=== PATIENT | female | born 1995 | race American Indian/Alaskan Native ===

== ENCOUNTER 2017-07-08 13:31 | Emergency (ER) | payer SELFPAY ==
[2017-07-08 14:00] VITALS: BP 115/68
--- NOTE | 2017-07-08 17:06 | Emergency Department Report ---
Blank Doc - Documentation Documentation: Patient is a 22-year-old [place] female who is presenting with low-grade fever and left no swelling in her neck and left inguinal area. Patient states is been present approximately one week she has had some mild nausea as well. Patient denies any sore throat cough congestion dysuria at this time. Because of patient has a left lateral swelling and there are some shotty anterior cervical lymph nodes and posterior cervical lymph nodes present I'm going to order some basic labs as measured her WBC count is not elevated urinalysis and rapid strep also be ordered as well
[2017-07-08 17:30] LABS: HCG Qualitative,Urine Negative (Negative)
[2017-07-08 17:35] LABS: Bilirubin,Urine SM (Negative); Blood,Urine NEG (Negative); Color,Urine Amber (Yellow); Mucus,Urine 3+ /HPF; Nitrite,Urine NEG (Negative); Renal Epithelial Cells,Urine 2 /LPF
[2017-07-08 17:37] LABS: Hematocrit 38.6 % (30.3-42.9); Hemoglobin 12.9 gm/dl (10.1-14.3); Mean Corpuscular HGB Conc 33 % (30-34); Mean Corpuscular Hemoglobin 30 pg (28-32); Mean Corpuscular Volume 90 fl (79-97); Platelet Count 338 K/mm3 (140-440); Red Blood Count 4.32 M/mm3 (3.65-5.03); Red Cell Distribution Width 12.7 % (13.2-15.2)
[2017-07-08 17:45] LABS: Ictotest,Urine Negative (Negative)
[2017-07-08 17:50] LABS: BUN/Creatinine Ratio 7; Blood Urea Nitrogen 5 mg/dL (7-17); Calcium 8.8 mg/dL (8.4-10.2); Hemolysis Index 4
[2017-07-08] MEDS ORDERED: ZITHROMAX PO ONE (18:45)
[2017-07-08] MEDS ORDERED: ROCEPHIN IM ONE (18:45)
[2017-07-08] MEDS ORDERED: MOTRIN PO ONE (18:45)
[2017-07-08] MEDS ORDERED: XYLOCAINE 1% MPF 5 mL INFILTRATI ONE (18:45)
--- NOTE | 2017-07-08 18:53 | Emergency Department Report ---
HPI - General Chief Complaint: Pain General Time Seen by Provider: 07/08/17 16:54 - HPI HPI: 22-year-old -[place] female comes in for complaint of fever and swelling of her lymph nodes. Patient reports that this been going for couple of days. She reports she's been having a fever for a couple days. She does admit to nasal congestion headache that feels like a band nausea or vomiting she is sexually active last activity was 2 weeks ago she mixed some mild vaginal discharge with no odor. She does admit to unprotected intercourse with no new partners. She denies any recent illness. She has been taken Tylenol to help with her fevers. But she reports every day for approximately 5 days she's woken up with a fever. She is no past medical history currently takes no medications has no known drug allergies. Last menstrual period was 06/17/2017. ED Past Medical Hx - Past Medical History Previous Medical History?: No - Surgical History Additional Surgical History: C- section - Social History Smoking Status: Never Smoker Substance Use Type: None - Medications Home Medications: Home Medications Medication Instructions Recorded Confirmed Last Taken Type Naproxen [Naprosyn 125 mg/5 ml] 500 mg PO Q12H PRN #10 bottle 04/10/15 Unknown Rx Ibuprofen [Motrin 600 MG tab] 600 mg PO TID PRN #30 tablet 07/08/17 Unknown Rx ED Review of Systems ROS: Stated complaint: FEVER/SWELLING IN LYMPHNO Other details as noted in HPI Constitutional: fever Eyes: denies: eye pain, eye discharge, vision change ENT: congestion. denies: ear pain, throat pain Respiratory: denies: cough, shortness of breath, wheezing Cardiovascular: denies: chest pain, palpitations Endocrine: no symptoms reported Gastrointestinal: nausea (not currently currently), vomiting Genitourinary: discharge (mild vaginal with no odor). denies: urgency, dysuria Musculoskeletal: denies: back pain, joint swelling, arthralgia Skin: denies: rash, lesions Neurological: headache (and like) Psychiatric: denies: anxiety, depression Hematological/Lymphatic: denies: easy bleeding, easy bruising Physical Exam - Physical Exam Vital Signs: Vital Signs 07/08/17 13:55 Temperature 100.2 F H Pulse Rate 103 H Respiratory 16 Rate Blood Pressure 115/68 O2 Sat by Pulse 99 Oximetry Physical Exam: GENERAL APPEARANCE: Well developed, well nourished, in no acute distress. SKIN: Inspection of the skin reveals no rashes, ulcerations or petechiae. HEENT: The sclerae were anicteric and conjunctivae were pink and moist. Extraocular movements were intact and pupils were equal, round, and reactive to light with normal accommodation. External inspection of the ears and nose showed no scars, lesions, or masses. Lips, teeth, and gums showed normal mucosa. The oral mucosa, hard and soft palate, tongue and posterior pharynx were normal. NECK: Supple and symmetric. There was no thyroid enlargement, and no tenderness , or masses were felt. CHEST: Normal AP diameter and normal contour without any kyphoscoliosis. LUNGS: Auscultation of the lungs revealed normal breath sounds without any other adventitious sounds or rubs. CARDIOVASCULAR: There was a regular rate and rhythm without any murmurs, gallops , rubs. The carotid pulses were normal and 2+ bilaterally without bruits. Peripheral pulses were 2+ and symmetric. ABDOMEN: Soft and nontender with normal bowel sounds. The liver edge was nontender. The spleen was not palpable. There were no inguinal or umbilical hernias noted. No ascites was noted. RECTAL: Normal perineal exam. Sphincter tone was normal. There was no external hemorrhoids or rectal masses. Stool Hemoccult was negative. The prostate was normal size without any nodules appreciated (men only). LYMPH NODES: lymphadenopathy was appreciated in the neck and groin. MUSCULOSKELETAL: Gait was normal. There was no tenderness or effusions noted. Muscle strength and tone were normal. EXTREMITIES: No cyanosis, clubbing or edema. NEUROLOGIC: Alert and oriented x 3. Normal affect. Gait was normal. Normal deep tendon reflexes with no pathological reflexes. Sensation to touch was normal. ED Course Vital Signs 07/08/17 13:55 Temperature 100.2 F H Pulse Rate 103 H Respiratory 16 Rate Blood Pressure 115/68 O2 Sat by Pulse 99 Oximetry ED Medical Decision Making - Lab Data Result diagrams: 07/08/17 17:17 07/08/17 17:17 - Radiology Data Patient has been evaluated by this provider and Dr. Castro in fast track. It was noted to patient having a low WBC 3.5, a little protein in the urine mild bilious negative strep. Dr. Castro and I agreed to give patient a Rocephin shot is azithromycin ibuprofen for pain and have her followed up by [facility]. She verbalized understanding. Critical care attestation.: If time is entered above; I have spent that time in minutes in the direct care of this critically ill patient, excluding procedure time. ED Disposition Clinical Impression: Lymphadenopathy Fever Qualifiers: Fever type: unspecified Qualified Code(s): R50.9 - Fever, unspecified Disposition: DC-01 TO HOME OR SELFCARE Is pt being admited?: No Does the pt Need Aspirin: No Condition: Stable Instructions: Lymphadenopathy (ED) Additional Instructions: Please follow up with the primary care provider. For further evaluation. Prescriptions: Ibuprofen [Motrin 600 MG tab] 600 mg PO TID PRN #30 tablet PRN Reason: Pain Referrals: PRIMARY CARE, [Primary Care Provider] - 3-5 Days [facility] [Provider Group] - 3-5 Days
[2017-07-08 19:01] LABS: Basophils % (Manual) 0 % (0.0-1.8); Total Cells Counted 100
[2017-07-08 19:02] LABS: Anisocytosis 1+
[2017-07-08 19:03] LABS: Helmet Cells Rare
== END 2017-07-08 22:34 | disposition home or self-care (01) ==
LOC: ED 13:31
DX: R59.1 Generalized enlarged lymph nodes (principal); R50.9 Fever, unspecified
CPT/HCPCS: 36415; 80048; 81001; 81025; 85007; 85025; 87430; 96372; 99283; J0696; 87116

== ENCOUNTER 2018-03-22 23:08 | Emergency (ER) | payer MEDICAID ==
[2018-03-23 01:23] VITALS: BP 117/79
[2018-03-23] MEDS ORDERED: ZOFRAN ODT PO ONE (01:51)
[2018-03-23] MEDS ORDERED: MOTRIN PO ONE (01:51)
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
== END 2018-03-23 02:35 | disposition home or self-care (01) ==
LOC: ED 23:08
DX: S00.01XA Abrasion of scalp, initial encounter (principal); J45.909 Unspecified asthma, uncomplicated; W51.XXXA Accidental striking against or bumped into by another person, initial encounter; Y93.89 Activity, other specified; Y92.89 Other specified places as the place of occurrence of the external cause; Y99.8 Other external cause status
CPT/HCPCS: 70450; 99283; Q0162